=== PATIENT | male | born 1985 | race Caucasian/White ===

== ENCOUNTER 2019-01-11 05:03 | Emergency (ER) | payer SELFPAY ==
[2019-01-11] MEDS ORDERED: OXYMETAZOLINE HCL 0.05% NASAL SPRAY 30 ML NS ONE (05:29)
--- NOTE | 2019-01-11 06:29 | ED Physician Documentation ---
General Adult - HISTORIAN Historian: patient - HPI Stated Complaint: frequent nose bleeds Chief Complaint: General Adult Onset: hours Timing: better Severity: moderate Further Comments: yes (Pt is a 33 yo male with c/o frequent nose bleeds over the past 2 weeks. Pt has a wood-burning stove for heat, but uses a humidifier. Bleeding has stopped at time of ER visit. Pt has not had this problem prior to 2 weeks ago. Pt is not lightheaded.) - ROS CONST: no problems EYES/ENT: other (nose bleed) CVS/RESP: none GI/: none MS/SKIN/LYMPH: none - PAST HX Past History: other (bipolar) Allergies/Adverse Reactions: Allergies Allergy/AdvReac Type Severity Reaction Status Date / Time aspirin Allergy Verified 01/11/19 05:15 Home Medications: Ambulatory Orders Medication Instructions Recorded NK 01/29/15 - SOCIAL HX Smoking History: other (e-cigarettes) - FAMILY HX Family History: No - VITAL SIGNS Vital Signs: Vital Signs Temp Pulse Resp BP Pulse Ox 98.1 F 100 H 16 140/97 96 01/11/19 05:04 01/11/19 05:04 01/11/19 05:04 01/11/19 05:04 01/11/19 05:04 - REVIEWED ASSESSMENTS Nursing Assessment Reviewed: Yes Vitals Reviewed: Yes Progress - Progress Progress: May use Afrin nasal spray for minor nose bleeds. 2 to 3 sprays each every 10 to 12 hours. Maximum 6 sprays per nostril per 24 hours. ED Results Lab/Radiology - Orders Orders: ED Orders Category Date Time Status CBC/PLATELET/DIFF Stat Lab 01/11/19 05:42 Received PT-INR Stat Lab 01/11/19 05:41 Received PTT Stat Lab 01/11/19 05:41 Received Oxymetazoline HCl [Afrin 0.05%] Med 01/11/19 05:29 Discontinued 1 spray NS NOW ONE General Adult Physical Exam - PHYSICAL EXAM GENERAL APPEARANCE: mild distress EENT: ENT inspection normal, pharynx normal (no blood seen) NECK: normal inspection, supple RESPIRATORY: no resp distress, chest non-tender, breath sounds normal CVS: reg rate & rhythm, heart sounds normal BACK: normal inspection SKIN: warm/dry, normal color EXTREMITIES: non-tender, normal range of motion, no evidence of injury NEURO: oriented X3, motor nml, sensation nml Discharge Clincal Impression: Epistaxis Referrals: Bartolo Henriquez MD [Primary Care Provider] - Condition: Good Disposition: 01 HOME, SELF-CARE Decision to Admit: NO Decision Time: 06:37
[2019-01-11 06:46] VITALS: BP 138/88
[2019-01-11 09:07] LABS: MEAN CORPUSCULAR HEMOGLOBIN 28.5 pg (28.0-34.0)
[2019-01-11 09:08] LABS: BASOPHILS % 1.2 (0.0-1.5); EOSINOPHILS % 3.4 % (0.0-6.8); NEUTROPHILS # 5.5 # k/uL (1.4-7.7)
== END 2019-01-11 06:39 | disposition home or self-care (01) ==
LOC: ED 05:03
DX: R04.0 Epistaxis (principal); Z72.0 Tobacco use
CPT/HCPCS: 36415; 85025; 85610; 85730; 99282; 99283; S1016